=== PATIENT | male | born 1950 | race Caucasian/White ===

== ENCOUNTER 2019-11-12 11:06 | Emergency (ER) | payer MEDICARE, MEDICAID ==
[~2019-11-12] VITALS: Ht 170.2 cm; Wt 74.5 kg
[~2019-11-12 11:06] MED LIST: CLOT15CR5 TP; DOXY100C43 PO; FIBER PO; HYDR12.5 PO; HYDR28CR14 TP; LACTAID9000 UNIT PO; TERA5CAP4 PO; VALS160T2 PO
[2019-11-12 11:23] VITALS: BP 158/81
[2019-11-12] MEDS ORDERED: TETanus/Pertussis (Acell)/Diphther VAC/PF (Tdap-Adult) 0.5ml syringe IMVAC ONE (13:40)
[2019-11-12] MEDS ORDERED: SULF1TAB49 PO (13:41)
== END 2019-11-12 14:00 | disposition home or self-care (01) ==
LOC: ER 11:07
DX: S80.12XA Contusion of left lower leg, initial encounter (principal); S90.811A Abrasion, right foot, initial encounter; I10 Essential (primary) hypertension; E11.9 Type 2 diabetes mellitus without complications; Z91.011 Allergy to milk products; Z79.899 Other long term (current) drug therapy; W18.39XA Other fall on same level, initial encounter; Y93.89 Activity, other specified; Y92.89 Other specified places as the place of occurrence of the external cause; Y99.8 Other external cause status
CPT/HCPCS: 90471; 90715; 99284

== ENCOUNTER 2020-07-18 13:09 | Emergency (ER) | payer MEDICARE, MEDICAID ==
[~2020-07-18] VITALS: Ht 170.2 cm; Wt 79.5 kg
[~2020-07-18 13:09] MED LIST changes: +CLOT15CR35 TP; -CLOT15CR5 TP
--- NOTE | 2020-07-18 14:27 | NUR ---
Case discussed with Dr. Apple who agrees to see that patient.
[2020-07-18] MEDS ORDERED: acetaminophen 325mg tablet PO ONE (14:30)
[2020-07-18] MEDS ORDERED: CefTRIAXone 2gm/D5W 50ml 50 ML IV ONE (15:20)
[2020-07-18] MEDS ORDERED: vancomycin/NS 1 GM ADD-VANTAGE 250 ML IV ONE (15:20)
[2020-07-18 15:39] LABS: HEMOGLOBIN 12.4 g/dl (14.0-17.9); MEAN PLATELET VOLUME 9.4 FL (7.4-10.4)
[2020-07-18 15:41] LABS: BASOPHILS % (AUTO) 0.1 % (0-1); EOSINOPHILS % (AUTO) 0.5 % (0-6); HEMATOCRIT 36.3 % (42.0-52.0); LYMPHOCYTES # (AUTO) 0.9 X10'3 (1.1-4.8); LYMPHOCYTES % (AUTO) 12.9 % (21-51); MEAN CORPUSCULAR HEMOGLOBIN 30.7 PG (27.0-31.0); MEAN CORPUSCULAR HGB CONC 34.1 g/dL (33.0-36.5); MEAN CORPUSCULAR VOLUME 90.1 FL (78-98); MONOCYTES # (AUTO) 0.7 X10'3 (0-0.9); MONOCYTES % (AUTO) 9.9 % (2-12); NEUTROPHILS # (AUTO) 5.3 X10'3 (1.8-7.7); NEUTROPHILS % (AUTO) 76.6 % (42-75); PLATELET COUNT 300 X10'3 (140-440); RED BLOOD COUNT 4.03 X10'6 (4.70-6.10); RED CELL DISTRIBUTION WIDTH 13.4 % (11.5-14.5); WHITE BLOOD COUNT 6.9 X10'3 (4.5-11.0)
[2020-07-18 15:46] LABS: CLARITY,URINE CLEAR (Clear); COLOR,URINE YELLOW (Yellow); GLUCOSE, URINE NEGATIVE (Neg); KETONES,URINE TRACE mg/dl (Neg); LEUKOCYTE ESTERASE ,URINE NEGATIVE (Neg); NITRITES, URINE NEGATIVE (Neg); OCCULT BLOOD,URINE NEGATIVE (Neg); PH,URINE 6.5 (4.8-8.0); PROTEIN,URINE 100 mg/dl (Neg)
[2020-07-18] MEDS ORDERED: LOSA100T57 PO (15:48)
[2020-07-18 15:51] LABS: UA COLLECTION TYPE VOIDED
[2020-07-18 15:52] LABS: ALANINE AMINOTRANSFERASE 112 U/L (12-78); ALBUMIN 2.7 G/DL (3.4-5.0); ALBUMIN/GLOBULIN RATIO 0.6 (1.1-1.5); ALKALINE PHOSPHATASE 43 IU/L (46-116); ANION GAP 10 (8-16); ASPARTATE AMINO TRANSFERASE 89 U/L (10-37); BILIRUBIN,TOTAL 0.7 MG/DL (0.1-1.0); BLOOD UREA NITROGEN 24 MG/DL (7-18); BUN/CREATININE RATIO 24.5 (5.4-32.0); CALCIUM 8.3 MG/DL (8.5-10.1); CHLORIDE 104 MMOL/L (99-107); CREATININE 0.98 MG/DL (0.60-1.10); GLUCOSE 106 MG/DL (70-104); MAGNESIUM 2.3 MG/DL (1.5-2.4); SODIUM 144 MMOL/L (135-145); TOTAL CARBON DIOXIDE 30.3 MMOL/L (24-32); TOTAL PROTEIN 6.9 G/DL (6.4-8.2); eGFR 76 ML/MIN
[2020-07-18 15:54] LABS: RBC,URINE NONE SEEN /HPF (0-2)
[2020-07-18 15:55] LABS: BACTERIA,URINE NONE SEEN /HPF (Neg); MUCUS STRANDS NONE SEEN /LPF (Neg); SQUAMOUS EPITHELIAL CELL,UR FEW /LPF (FEW)
[2020-07-18 15:56] LABS: POTASSIUM 2.2 MMOL/L (3.5-5.1)
[2020-07-18 15:59] LABS: LARGE PLATELETS FEW; PLATELET ESTIMATE NORMAL
[2020-07-18] MEDS ORDERED: potassium Cl 20 mEq SR tablet PO ONE (16:00)
[2020-07-18 16:25] LABS: D-DIMER 0.49 MG/L FEU (0-0.50)
[2020-07-18] MEDS: potassium Cl 10 mEq/100mL bag IV SCH ×2 (16:30→17:39)
[2020-07-18] MEDS: magnesium 2GM in 50ml NS 50 ML IV SCH ×2 (16:31→17:38)
[2020-07-18 16:39] LABS: C-REACTIVE PROTEIN 11.76 MG/DL (0.0-0.5); LACTATE DEHYDROGENASE 468 U/L (85-227)
[2020-07-18] MEDS ORDERED: AZIT500T PO (17:39)
[2020-07-18] MEDS ORDERED: POTA20TA19 PO (17:39)
[2020-07-18] MEDS ORDERED: DEXA6TAB PO (17:39)
[2020-07-18 19:16] VITALS: BP 142/87
== END 2020-07-18 19:18 | disposition home or self-care (01) ==
LOC: ER 13:10
DX: J18.1 Lobar pneumonia, unspecified organism (principal); R53.1 Weakness; H54.7 Unspecified visual loss; E87.6 Hypokalemia; I10 Essential (primary) hypertension; Z88.8 Allergy status to other drugs, medicaments and biological substances; Z79.2 Long term (current) use of antibiotics; Z20.828 Contact with and (suspected) exposure to other viral communicable diseases; Z79.899 Other long term (current) drug therapy
CPT/HCPCS: 36415; 71045; 80053; 81001; 83605; 83615; 83735; 84145; 85025; 85379; 85651; 86140; 87040; 87088; 93005; 96365; 96366; 96367; 96368; 99285; J0696; J3370; J3475; J3480

== ENCOUNTER 2021-08-22 05:37 | Day surgery (SDC) | payer MEDICARE, MEDICAID ==
[2021-08-15 11:35] LABS: BASOPHILS % (AUTO) 0.5 % (0-1); EOSINOPHILS # (AUTO) 0.1 X10'3 (0-0.9); EOSINOPHILS % (AUTO) 1.5 % (0-6); LYMPHOCYTES % (AUTO) 19.1 % (21-51); MEAN CORPUSCULAR HEMOGLOBIN 31.2 PG (27.0-31.0); MEAN CORPUSCULAR HGB CONC 33.8 g/dL (33.0-36.5); MEAN CORPUSCULAR VOLUME 92.4 FL (78-98); MEAN PLATELET VOLUME 9.9 FL (7.4-10.4); MONOCYTES # (AUTO) 0.4 X10'3 (0-0.9); MONOCYTES % (AUTO) 7.8 % (2-12); NEUTROPHILS # (AUTO) 3.6 X10'3 (1.8-7.7); NEUTROPHILS % (AUTO) 71.1 % (42-75); PRE OP HEMATOCRIT 46.6 % (42.0-52.0); PRE OP HEMOGLOBIN 15.8 g/dL (14.0-17.9); PRE OP PLATELET COUNT 184 X10'3 (140-440); RED BLOOD COUNT 5.05 X10'6 (4.70-6.10); RED CELL DISTRIBUTION WIDTH 13.4 % (11.5-14.5)
[2021-08-15 11:52] LABS: ALBUMIN 3.5 G/DL (3.4-5.0); ALBUMIN/GLOBULIN RATIO 1.1 (1.1-1.5); ALKALINE PHOSPHATASE 57 IU/L (46-116); BLOOD UREA NITROGEN 26 MG/DL (7-18); BUN/CREATININE RATIO 34.7 (5.4-32.0); CALCIUM 8.5 MG/DL (8.5-10.1); CHLORIDE 109 MMOL/L (99-107); CREATININE 0.75 MG/DL (0.60-1.10); PRE OP ALT 39 U/L (30-65); PRE OP ANION GAP 11 (8-16); PRE OP AST 18 U/L (10-37); PRE OP BILIRUB, TOTAL 0.3 MG/DL (0.0-1.0); PRE OP GLUCOSE 118 MG/DL (70-104); PRE OP SODIUM 146 MMOL/L (135-145); TOTAL CARBON DIOXIDE 26.3 MMOL/L (24-32); TOTAL PROTEIN 6.8 G/DL (6.4-8.2); eGFR > 90 ML/MIN
[2021-08-15 11:57] LABS: PRE OP POTASSIUM 3.2 MMOL/L (3.4-5.1)
[2021-08-22] VITALS (14 sets, daily range): BP systolic 120–158; BP diastolic 72–96
[~2021-08-22] VITALS: Ht 182.9 cm; Wt 79.4 kg
[~2021-08-22 05:37] MED LIST changes: -CLOT15CR35 TP; -FIBER PO; -HYDR28CR14 TP; -LACTAID9000 UNIT PO; +LOSA100T57 PO; -TERA5CAP4 PO; -VALS160T2 PO; +cefazolin/dext.iso 2gm/100ml IV ONE; +famotidine 20mg tablet PO ONE; +ringers solution, lacted 1,000 ML IV SCH
[2021-08-22] MEDS ORDERED: bacitracin 15gm ointment TP ONE (06:49)
[2021-08-22] MEDS ORDERED: BUPIVAcaine/PF 2.5mg/ml (0.25%) 10ml vial ONE (06:49)
[2021-08-22 07:30] LABS: ALANINE AMINOTRANSFERASE 34 U/L (12-78); ALBUMIN 3.7 G/DL (3.4-5.0); ALBUMIN/GLOBULIN RATIO 1.2 (1.1-1.5); ALKALINE PHOSPHATASE 56 IU/L (46-116); ANION GAP 9 (8-16); ASPARTATE AMINO TRANSFERASE 19 U/L (10-37); BILIRUBIN,TOTAL 0.4 MG/DL (0.1-1.0); BLOOD UREA NITROGEN 27 MG/DL (7-18); BUN/CREATININE RATIO 27.6 (5.4-32.0); CALCIUM 8.6 MG/DL (8.5-10.1); CHLORIDE 110 MMOL/L (99-107); CREATININE 0.98 MG/DL (0.60-1.10); GLUCOSE 107 MG/DL (70-104); POTASSIUM 3.8 MMOL/L (3.5-5.1); SODIUM 143 MMOL/L (135-145); TOTAL CARBON DIOXIDE 24.5 MMOL/L (24-32); TOTAL PROTEIN 6.8 G/DL (6.4-8.2); eGFR 76 ML/MIN
[2021-08-22] MEDS ORDERED: ringers solution, lacted 1,000 ML IV SCH (07:35)
[2021-08-22] MEDS ORDERED: morphine 4 MG/ML inj SYRINge IV PRN (07:35)
[2021-08-22] MEDS ORDERED: morphine 2 MG/ML inj. syringe IV PRN (07:35)
[2021-08-22] MEDS ORDERED: meperidine/PF 25mg/ml syringe IV PRN ×3 (07:35)
[2021-08-22] MEDS ORDERED: ondansetron/PF 4mg/2ml inj IV PRN (07:35)
[2021-08-22] MEDS ORDERED: proCHLORperazine 10 MG/2 ml inj IV PRN (07:35)
[2021-08-22] MEDS ORDERED: MIDAZolam 1 MG/ML 5ML VIAL ONE (07:45)
[2021-08-22] MEDS ORDERED: fentaNYL/PF 50MCG/1 ML 2ML syringe ONE (07:45)
--- NOTE | 2021-08-22 08:47 | NUR ---
Received from OR via , accompanied by Anesthesiologist DR TAVAREZ and report given by Anesthesiolgist. AWAKENS TO VOICE. VITALS STABLE. DRESSING DI. DALY PAIN. SENSATION AT THE FEET. UNABLE TO MOVE LOWER EXTREMITIES.
--- NOTE | 2021-08-22 10:27 | NUR ---
Report called to receiving nurse. Transferred via [facility] . Special Issues communicated to receiving nurse. AWAKE AND ORIENTED. VITALS STABLE. DRESSING DI. DALY PAIN. STILL UNABLE TO MOVE LOWER EXTREMITIES. TO [facility] RM 245A AT THIS TIME.
--- NOTE | 2021-08-22 10:37 | NUR ---
PT RECEIVED TO [facility] ROOM 245A FROM [facility]QUE[facility]. 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 Addendum: 08/22/21 at 1130 by Nargis Richards RN, RN Amended: Links added.
--- NOTE | 2021-08-22 12:44 | NUR ---
PT'S REPORTS ALL SENSATION HAS RETURNED TO LEGS AND FEET. PT PAIN 0/10. PT IS DRESSED AND HELPED TO WHEEL CHAIR WITH [employer]SP[employer]. PIV REMOVED AND COBAN PLACED. PT WHEELED TO WAITING [facility] TRANSPORT VAN WITH [employer] TO BE TAKEN HOME. Addendum: 08/22/21 at 1252 by Nargis Richards RN, RN Amended: Links added.
== END 2021-08-22 12:37 | disposition home or self-care (01) ==
LOC: PAS 05:37
PROVIDERS: ATTEND Urology
DX: N43.0 Encysted hydrocele (principal); N44.2 Benign cyst of testis; I10 Essential (primary) hypertension; E11.9 Type 2 diabetes mellitus without complications; G80.9 Cerebral palsy, unspecified; E66.9 Obesity, unspecified; Z68.27 Body mass index [BMI] 27.0-27.9, adult; Z20.822 Contact with and (suspected) exposure to COVID-19; Z88.2 Allergy status to sulfonamides; Z86.16 Personal history of COVID-19; Z79.899 Other long term (current) drug therapy; Z98.890 Other specified postprocedural states; Z83.3 Family history of diabetes mellitus; Z80.9 Family history of malignant neoplasm, unspecified
CPT/HCPCS: 36415; 54520; 80053; 82948; 85025; 86885; 86900; 86901; 93005; J2250; J3010; J3490; U0003; U0005; Z7506; Z7508; Z7512; A4215; A4618; A6449; A7000; J7120

== ENCOUNTER 2021-12-15 14:20 | Emergency (ER) | payer MEDICARE, MEDICAID ==
[~2021-12-15] VITALS: Ht 170.2 cm; Wt 79.5 kg
[~2021-12-15 14:20] MED LIST changes: -cefazolin/dext.iso 2gm/100ml IV ONE; -famotidine 20mg tablet PO ONE; -ringers solution, lacted 1,000 ML IV SCH
[2021-12-15 15:37] LABS: BASOPHILS % (AUTO) 0.5 % (0-1); EOSINOPHILS # (AUTO) 0.1 X10'3 (0-0.9); EOSINOPHILS % (AUTO) 1.1 % (0-6); HEMATOCRIT 47.4 % (42.0-52.0); HEMOGLOBIN 16.4 g/dl (14.0-17.9); LYMPHOCYTES # (AUTO) 1.6 X10'3 (1.1-4.8); LYMPHOCYTES % (AUTO) 20.6 % (21-51); MEAN CORPUSCULAR HEMOGLOBIN 31.1 PG (27.0-31.0); MEAN CORPUSCULAR HGB CONC 34.7 g/dL (33.0-36.5); MEAN CORPUSCULAR VOLUME 89.5 FL (78-98); MEAN PLATELET VOLUME 9.6 FL (7.4-10.4); MONOCYTES # (AUTO) 0.7 X10'3 (0-0.9); NEUTROPHILS # (AUTO) 5.5 X10'3 (1.8-7.7); NEUTROPHILS % (AUTO) 68.8 % (42-75); PLATELET COUNT 230 X10'3 (140-440); RED BLOOD COUNT 5.29 X10'6 (4.70-6.10); RED CELL DISTRIBUTION WIDTH 14.2 % (11.5-14.5)
[2021-12-15 15:49] LABS: APTT 27 SECONDS (22-32); D-DIMER 0.38 MG/L FEU (0-0.50)
[2021-12-15] MEDS ORDERED: iohexol 350MG/ML 100ml bottle IV ONE (15:49)
[2021-12-15] MEDS ORDERED: iohexol 350 MG/ML 50ML vial IV ONE (15:49)
[2021-12-15 15:50] LABS: ALANINE AMINOTRANSFERASE 38 U/L (12-78); ALBUMIN 3.7 G/DL (3.4-5.0); ALBUMIN/GLOBULIN RATIO 1.1 (1.1-1.5); ALKALINE PHOSPHATASE 50 IU/L (46-116); ANION GAP 13 (8-16); ASPARTATE AMINO TRANSFERASE 17 U/L (10-37); BILIRUBIN,TOTAL 0.3 MG/DL (0.1-1.0); BLOOD UREA NITROGEN 26 MG/DL (7-18); BUN/CREATININE RATIO 36.6 (5.4-32.0); CALCIUM 8.9 MG/DL (8.5-10.1); CHLORIDE 104 MMOL/L (99-107); CREATININE 0.71 MG/DL (0.60-1.10); GLUCOSE 117 MG/DL (70-104); POTASSIUM 3.4 MMOL/L (3.5-5.1); SODIUM 142 MMOL/L (135-145); TOTAL CARBON DIOXIDE 24.9 MMOL/L (24-32); TOTAL PROTEIN 7.2 G/DL (6.4-8.2); eGFR > 90 ML/MIN
[2021-12-15 15:57] LABS: MAGNESIUM 2.2 MG/DL (1.5-2.4)
[2021-12-15 19:51] VITALS: BP 136/80
== END 2021-12-15 19:55 | disposition home or self-care (01) ==
LOC: ER 14:20
DX: R60.0 Localized edema (principal); R20.2 Paresthesia of skin; E11.9 Type 2 diabetes mellitus without complications; H54.7 Unspecified visual loss; G80.9 Cerebral palsy, unspecified; I10 Essential (primary) hypertension; Z79.2 Long term (current) use of antibiotics; Z79.899 Other long term (current) drug therapy; Z88.2 Allergy status to sulfonamides; Z91.011 Allergy to milk products; Z72.89 Other problems related to lifestyle
CPT/HCPCS: 36415; 71045; 75635; 80053; 83735; 83880; 84484; 85025; 85379; 85610; 85730; 86885; 86900; 86901; 93005; 93931; 99285; Q9967

== ENCOUNTER 2024-11-15 13:29 | Emergency (ER) | payer MEDICARE, MEDICAID ==
[~2024-11-15] VITALS: Ht 152.4 cm; Wt 79.5 kg
[~2024-11-15 13:29] MED LIST changes: -LOSA100T57 PO; +LOSA100T58 PO
[2024-11-15 16:02] LABS: BASOPHILS % (AUTO) 0.4 % (0-1); EOSINOPHILS % (AUTO) 0.7 % (0-6); HEMATOCRIT 45.7 % (42.0-52.0); HEMOGLOBIN 15.8 g/dl (14.0-17.9); LYMPHOCYTES # (AUTO) 1.2 X10'3 (1.1-4.8); LYMPHOCYTES % (AUTO) 16.3 % (21-51); MEAN CORPUSCULAR HGB CONC 34.5 g/dL (33.0-36.5); MEAN CORPUSCULAR VOLUME 92.6 FL (78-98); MEAN PLATELET VOLUME 9.6 FL (7.4-10.4); MONOCYTES # (AUTO) 0.5 X10'3 (0-0.9); MONOCYTES % (AUTO) 7.1 % (2-12); NEUTROPHILS # (AUTO) 5.3 X10'3 (1.8-7.7); NEUTROPHILS % (AUTO) 75.5 % (42-75); PLATELET COUNT 202 X10'3 (140-440); RED BLOOD COUNT 4.93 X10'6 (4.70-6.10); WHITE BLOOD COUNT 7.1 X10'3 (4.5-11.0)
[2024-11-15 16:13] LABS: ALANINE AMINOTRANSFERASE 30 U/L (12-78); ALBUMIN 3.8 G/DL (3.4-5.0); ALBUMIN/GLOBULIN RATIO 1.1 (1.1-1.5); ALKALINE PHOSPHATASE 55 IU/L (46-116); AMYLASE 38 U/L (25-115); ANION GAP 8 (8-16); ASPARTATE AMINO TRANSFERASE 16 U/L (10-37); BILIRUBIN,TOTAL 0.4 MG/DL (0.1-1.0); BLOOD UREA NITROGEN 23 MG/DL (7-18); BUN/CREATININE RATIO 32.9 (10.0-20.0); CALCIUM 8.9 MG/DL (8.5-10.1); CHLORIDE 106 MMOL/L (99-107); GLUCOSE 104 MG/DL (70-104); LIPASE 29 U/L (16-77); POTASSIUM 3.8 MMOL/L (3.5-5.1); SODIUM 143 MMOL/L (135-145); TOTAL CARBON DIOXIDE 28.7 MMOL/L (24-32); TOTAL PROTEIN 7.2 G/DL (6.4-8.2); eCRCL 67 ML/MIN; eGFR > 90 ML/MIN
[2024-11-15 17:13] LABS: BILIRUBIN,URINE NEGATIVE (Neg); CLARITY,URINE CLEAR (Clear); COLOR,URINE YELLOW (Yellow); GLUCOSE, URINE NEGATIVE (Neg); KETONES,URINE NEGATIVE (Neg); LEUKOCYTE ESTERASE ,URINE NEGATIVE (Neg); NITRITES, URINE NEGATIVE (Neg); OCCULT BLOOD,URINE LARGE (Neg); PROTEIN,URINE 30 mg/dl (Neg); UROBILINOGEN,URINE 0.2 E.U/dL (0.2-1.0)
[2024-11-15 17:21] LABS: UA COLLECTION TYPE VOIDED
[2024-11-15 17:24] LABS: BACTERIA,URINE NONE SEEN /HPF (Neg); SQUAMOUS EPITHELIAL CELL,UR NONE SEEN /LPF (FEW); URIC ACID CRYSTALS 4+ /HPF (NEGATIVE); WBC,URINE NONE SEEN /HPF (0-4)
[2024-11-15 20:07] VITALS: BP 152/78; PULSE 79; RESP 15; TEMP 98; O2SAT 100
== END 2024-11-15 20:14 | disposition home or self-care (01) ==
LOC: ER 13:30
DX: R31.9 Hematuria, unspecified (principal); I10 Essential (primary) hypertension; Z88.2 Allergy status to sulfonamides; Z91.011 Allergy to milk products
CPT/HCPCS: 36415; 74176; 80053; 81001; 82150; 83690; 85025; 99284; 99285